=== PATIENT | male | born 1960 | race Caucasian/White ===

== ENCOUNTER 2023-01-11 17:36 | Emergency (ER) | payer OTHER ==
[~2023-01-11] VITALS: Ht 190.5 cm; Wt 120.2 kg
[2023-01-11] MEDS ORDERED: IV NORMAL SALINE 1000 ML BAG IV ONE (18:00)
[2023-01-11] MEDS ORDERED: MORPHINE SULFATE 2 MG/1 ML DISP.SYRIN IV ONE (18:00)
[2023-01-11] MEDS ORDERED: ONDANSETRON 4 MG/2 ML VIAL IV ONE (18:00)
[2023-01-11] MEDS ORDERED: MORPHINE SULFATE 4 MG/1 ML DISP.SYRIN ONE (18:04)
[2023-01-11] MEDS ORDERED: ONDANSETRON 4 MG/2 ML VIAL ONE (18:05)
[2023-01-11] MEDS ORDERED: MORPHINE SULFATE 2 MG/1 ML DISP.SYRIN ONE (18:05)
[2023-01-11 18:11] LABS: *BILIRUBIN,URIN NEGATIVE (NEGATIVE); *BLOOD, URINE 3+ (NEGATIVE); *CLARITY,URINE CLEAR (CLEAR); *COLOR,URINE YELLOW (YELLOW); *KETONES,URINE 3+ (NEGATIVE); *UROBILINOGEN,URINE 0.2 E.U./dl (NORMAL); LEUKOCYTE ESTERASE ,URINE NEGATIVE (NEGATIVE); NITRITE, URINE NEGATIVE (NEGATIVE); UGLUCOSE NEGATIVE (NEGATIVE)
[2023-01-11 18:28] LABS: HEMATOCRIT 43.5 % (36.7-47.1); MEAN CORPUSCULAR HEMOGLOBIN 31.5 uug (23.8-33.4); MEAN CORPUSCULAR VOLUME 92.3 fL (73.0-96.2); PLATELET COUNT (AUTO) 225 K/uL (152-348)
--- NOTE | 2023-01-11 18:34 | NUR ---
PT IS IN ROOM #2B. DR DAVIS EVALUATED THE PT.
[2023-01-11 18:42] LABS: CREATININE 1.4 mg/dL (0.6-1.3); POTASSIUM 4.1 mmol/L (3.5-5.1)
[2023-01-11 18:48] LABS: BILIRUBIN,DIRECT 0.2 mg/dL (0.0-0.2); BILIRUBIN,TOTAL 0.8 mg/dL (0.2-1.0); TOTAL PROTEIN, SERUM 7.1 g/dL (6.4-8.2)
--- NOTE | 2023-01-11 19:26 | NUR ---
PATIENT RETURNING FROM CT DEPARTMENT, UPDATED ON PLAN OF CARE AT THIS TIME, AWARE AWAITING RESULTS. NO S/S OF ANY DISTRESS, NO VOICED C/O PAIN OR DISCOMFORT AT THIS TIME. MD AT BEDSIDE TALKING WITH PATIENT. WILL CONTINUE TO MONITOR.
[2023-01-11] MEDS ORDERED: KETOROLAC TROMETHAMINE 30 MG INJ IVP ONE (19:30)
[2023-01-11] MEDS ORDERED: KETOROLAC TROMETHAMINE 30 MG INJ ONE (19:30)
[2023-01-11] MEDS ORDERED: HYDR2TAB4 PO (20:37)
[2023-01-11] MEDS ORDERED: ONDA4TAB5 PO (20:37)
[2023-01-11] MEDS ORDERED: HYDROMORPHONE 1 MG/1 ML DISP.SYRIN ONE (20:43)
[2023-01-11] MEDS ORDERED: HYDROMORPHONE 1 MG/1 ML DISP.SYRIN IV ONE (20:45)
--- NOTE | 2023-01-11 20:47 | NUR ---
Patient medicated for pain 2/10 as per order at this time.
--- NOTE | 2023-01-11 21:18 | NUR ---
ACI GIVEN, HL REMOVED REMAINS STABLE FOR DISCHARGE HOME WITH FAMILY. 121/[id number]
[2023-01-11 21:19] VITALS: BP 121/70
[2023-01-11 22:10] LABS: BACTERIA,URINE NONE SEEN /HPF (NONE SEEN); RBC,URINE 50-80 /HPF (0-3); WBC,URINE 0-3 /HPF (0-3)
[2023-01-11 22:11] LABS: SQUAMOUS EPITHELIAL CELL,UR FEW /HPF (NONE SEEN); URIC ACID CRYSTALS,URINE MODERATE /HPF (NONE SEEN)
== END 2023-01-11 21:19 | disposition home or self-care (01) ==
LOC: ER 18:32
DX: N13.2 Hydronephrosis with renal and ureteral calculous obstruction (principal); R10.9 Unspecified abdominal pain; Z85.46 Personal history of malignant neoplasm of prostate; Z90.79 Acquired absence of other genital organ(s); Z88.5 Allergy status to narcotic agent; Z88.8 Allergy status to other drugs, medicaments and biological substances
CPT/HCPCS: 99285; 74176; 96374; 96375; 96361; 80076; 80048; 81001; 83690; 85025; 36415; J1885; J2405; J1170; J2270 ×2; J7040; A4663